=== PATIENT | female | born 1995 | race Caucasian/White ===

== ENCOUNTER 2020-08-19 09:24 | Emergency (ER) | payer OTHER ==
[~2020-08-19] VITALS: Ht 165.1 cm; Wt 99.8 kg
== END 2020-08-19 16:43 | disposition home or self-care (01) ==
LOC: ER 09:24
DX: N83.291 Other ovarian cyst, right side (principal); R10.2 Pelvic and perineal pain; N39.0 Urinary tract infection, site not specified

== ENCOUNTER 2021-01-22 10:37 | Emergency (ER) | payer OTHER ==
[~2021-01-22] VITALS: Ht 165.1 cm; Wt 95.3 kg
[2021-01-22] MEDS ORDERED: KETO10TA2 PO (13:24)
== END 2021-01-22 13:28 | disposition home or self-care (01) ==
LOC: ER 10:37
DX: S50.11XA Contusion of right forearm, initial encounter (principal); V49.9XXA Car occupant (driver) (passenger) injured in unspecified traffic accident, initial encounter; Y93.89 Activity, other specified; Y92.488 Other paved roadways as the place of occurrence of the external cause

== ENCOUNTER 2022-06-21 19:19 | Emergency (ER) | payer OTHER ==
[~2022-06-21] VITALS: Ht 165.1 cm; Wt 90.7 kg
[~2022-06-21 19:19] MED LIST: KETO10TA2 PO
== END 2022-06-21 23:25 | disposition home or self-care (01) ==
LOC: ER 19:19
DX: K59.00 Constipation, unspecified (principal); R10.31 Right lower quadrant pain; Z88.8 Allergy status to other drugs, medicaments and biological substances

== ENCOUNTER 2025-05-08 15:33 | Emergency (ER) | payer OTHER ==
[~2025-05-08] VITALS: Ht 165.1 cm; Wt 104.3 kg
[2025-05-08] MEDS ORDERED: ACETAMINOPHEN 500 MG GEL..CAP PO ONE (16:45)
[2025-05-08] MEDS ORDERED: ORPHENADRINE CITRATE 30 MG/ML AMPUL IM ONE (16:45)
[2025-05-08] MEDS ORDERED: NORFLEX100MG PO (20:05)
[2025-05-08] MEDS ORDERED: DICLOFENAC SODI50 MG PO (20:05)
== END 2025-05-08 21:37 ==
LOC: ER 15:33
DX: S09.8XXA Other specified injuries of head, initial encounter (principal); W01.0XXA Fall on same level from slipping, tripping and stumbling without subsequent striking against object, initial encounter; Y93.89 Activity, other specified; Y92.59 Other trade areas as the place of occurrence of the external cause; S69.81XA Other specified injuries of right wrist, hand and finger(s), initial encounter; Z88.8 Allergy status to other drugs, medicaments and biological substances